=== PATIENT | male | born 1975 | race Two or more races ===

== ENCOUNTER 2017-10-23 22:09 | Emergency (ER) | payer OTHER ==
[~2017-10-23] VITALS: Ht 172.7 cm; Wt 90.7 kg
[2017-10-23 22:21] VITALS: BP 135/79
--- NOTE | 2017-10-23 23:56 | Emergency Room Report ---
History of Present Illness General Chief Complaint: Altered Level of Consciousness Source: EMS Present Illness HPI This is a 42-year-old male brought in as a Sohail Hernandez by police. He was sent in for medical clearance and possible drug overdose. He was being arrested for theft. He was not being cooperative and was spitting. He then became unresponsive and not cooperating. Patient refuse to give any history. Allergies: Coded Allergies: UNABLE TO ASSESS (Unverified , 10/23/17) Patient History Past Medical History: see triage record, old chart reviewed, unable to obtain Past Surgical History: unable to obtain Pertinent Family History: unable to obtain Immunizations: other Reviewed Nursing Documentation: PMH: Agreed, PSxH: Agreed Review of Systems All Other Systems: limited - Patient not cooperating Physical Exam Vital Signs Date Time Temp Pulse Resp B/P (MAP) Pulse Ox O2 Delivery O2 Flow Rate FiO2 10/23/17 22:10 97.0 139 16 139/80 98 Room Air vitals with tachycardia Sp02 EP Interpretation: reviewed, normal General Appearance: well appearing, no apparent distress Head: normocephalic, atraumatic Eyes: bilateral eye PERRL, bilateral eye EOMI ENT: hearing grossly normal, normal pharynx Neck: full range of motion, supple, no meningismus Respiratory: chest non-tender, lungs clear, normal breath sounds Cardiovascular #1: regular rate, rhythm, no murmur Gastrointestinal: normal bowel sounds, non tender, no mass, no organomegaly, no bruit, non-distended Musculoskeletal: back normal, normal range of motion Neurologic: grossly normal Skin: warm/dry Medical Decision Making Diagnostic Impression: Primary Impression: Altered level of consciousness Additional Impression: Methamphetamine abuse ER Course Patient presents with altered mental status secondary to methamphetamine abuse. I suspect there may be some malingering component to this. I tried opening his eyes but he is forcefully closing them. There is no focal deficit. Heart rate improved. We'll discharge to police once is more awake. Last Vital Signs Date Time Temp Pulse Resp B/P (MAP) Pulse Ox O2 Delivery O2 Flow Rate FiO2 10/23/17 22:21 97.6 84 17 135/79 99 Room Air Status: unchanged Disposition: D/C TO LAW ENFORCEMENT IN [facility] Condition: Stable Referrals: NOT CHOSEN IPA/MD,REFERRING (PCP) Additional Instructions: Stop using drugs. Followup with your doctor 7 days. Return if worse. HEATON,NURY M.D. Oct 23, 2017 23:56
[2017-10-24] MEDS ORDERED: Ammonia Inhalant 0.33mL 1 Amp INH ONE ×2 (00:06→00:10)
[2017-10-24 00:50] VITALS: BP 130/78
[2017-10-24 01:07] VITALS: BP 130/78
== END 2017-10-24 01:07 ==
LOC: EDBD 22:09 → EMR 22:25
DX: R41.82 Altered mental status, unspecified (principal); F15.10 Other stimulant abuse, uncomplicated
CPT/HCPCS: 80307; 99284